=== PATIENT | male | born 1940 | race Caucasian/White ===

== ENCOUNTER → 2016-07-14 | Outpatient (CLI) | payer MEDICARE, OTHER | LOC: LAB.O 10:17 | PROVIDERS: ATTEND Nurse Practitioner Family | DX: I10 Essential (primary) hypertension (principal); R60.0 Localized edema; M79.641 Pain in right hand; M79.642 Pain in left hand ==

== ENCOUNTER → 2016-08-06 | Outpatient (CLI) | payer MEDICARE, OTHER ==
--- NOTE | 2016-08-06 14:55 | CT ---
EXAM DESCRIPTION: CT CHEST WITH IV CONTRAST CLINICAL HISTORY: EDEMA COMPARISON: None available TECHNIQUE: Chest CT was performed with IV contrast per PE protocol period no 3D reconstructed images were obtained. FINDINGS: Study is only slightly limited by respiratory motion artifact, but no pulmonary embolus is identified. The thyroid and thoracic inlet are unremarkable. There is no mediastinal or hilar adenopathy. No pleural or pericardial effusion. No thoracic aortic aneurysm or dissection. The central airways are clear. There is no airspace consolidation or lung mass. There is a 3 mm noncalcified right middle lobe nodule (series 2, image 34) period there is a 4 mm noncalcified nodule in the left upper lobe (series 2, image 21). There are several round low-density liver lesions measuring up to 2 cm diameter. The largest of these represent cysts, the smaller lesions are too small to characterize but also likely represent cysts period. Visualized portions of the upper abdomen are otherwise unremarkable. There is no suspicious bone lesion. IMPRESSION: Slightly limited exam due to motion artifact, but no apparent pulmonary embolus or other acute intrathoracic abnormality. Two small noncalcified nodules, 1 in each lung, the largest measuring 4 mm diameter period As per Fleischner Society guidelines for follow-up and management of pulmonary nodules: For patient at low risk (minimal or absent history of smoking and of other known risk factors), recommend follow-up chest CT at 12 months; if unchanged, no further follow-up. For patient at high risk (history of smoking or of other known risk factors), recommend initial follow-up chest CT at 6-12 months, then at 18-24 months if no interval change. Electronically signed by: Christian Riggins DO 08/06/2016 14:53
--- NOTE | 2016-08-06 15:22 | US ---
EXAM DESCRIPTION: US UPPER EXTREMITY VEINS LIMITED/UNILATERAL/FOLLOW UP CLINICAL HISTORY: EDEMA COMPARISON: None. TECHNIQUE: 2D grayscale and color venous duplex Doppler evaluation of the left upper extremity is performed. FINDINGS: There is normal vascular flow in the left subclavian and internal jugular vein. There is normal flow and compressibility in the axillary, basilic, brachial, cephalic, radial, and ulnar veins. No evidence of venous thrombosis is seen. IMPRESSION: No ultrasound evidence of venous thrombosis of the left upper extremity. Electronically signed by: Gonzalo Polo MD 08/06/2016 15:20
--- NOTE | 2016-08-06 15:23 | US ---
EXAM DESCRIPTION: US UPPER EXTREMITY VEINS LIMITED/UNILATERAL/FOLLOW UP CLINICAL HISTORY: EDEMA COMPARISON: None. TECHNIQUE: 2D grayscale and color venous duplex Doppler evaluation of the right upper extremity is performed. FINDINGS: Normal vascular flow seen in the right subclavian and internal jugular veins. There is normal compressibility and color flow in the right axillary, basilic, brachial, cephalic, radial, and ulnar veins. No venous thrombosis is identified. IMPRESSION: No ultrasound evidence of venous thrombosis of the right upper extremity. Electronically signed by: Gonzalo Polo MD 08/06/2016 15:21
== END | disposition home or self-care (01) ==
LOC: US 11:42
PROVIDERS: ATTEND Nurse Practitioner Family
DX: R60.0 Localized edema (principal); C85.90 Non-Hodgkin lymphoma, unspecified, unspecified site

== ENCOUNTER → 2018-04-29 | Outpatient (CLI) | payer MEDICARE, OTHER ==
--- NOTE | 2018-04-29 10:03 | RAD ---
EXAM DESCRIPTION: Pelvis CLINICAL HISTORY: PAIN IN LEFT HIP COMPARISON: None. TECHNIQUE: AP pelvis FINDINGS: The pelvis and proximal femurs are normal in appearance. Small phlebolith type calcifications are observed in the floor the pelvis. No mass is seen. IMPRESSION: Normal pelvis and proximal femurs. Electronically signed by: Reyes Kim MD 04/29/2018 10:01 AM CDT
--- NOTE | 2018-04-29 10:04 | RAD ---
EXAM DESCRIPTION: Knee,Left Complete CLINICAL HISTORY: LEFT KNEE PAIN COMPARISON: None. TECHNIQUE: 4 views left FINDINGS: A left total knee arthroplasty is observed. No evidence of loosening or infection is detected. A small joint effusion is evident. No fracture is detected. IMPRESSION: Left total knee arthroplasty. A small joint effusion is evident. Electronically signed by: Reyes Kim MD 04/29/2018 10:03 AM CDT
== END ==
LOC: RAD 08:00
PROVIDERS: ATTEND Orthopaedic Surgery
DX: M25.562 Pain in left knee (principal); M25.552 Pain in left hip; M25.462 Effusion, left knee; Z96.652 Presence of left artificial knee joint

== ENCOUNTER → 2019-01-17 | Outpatient (CLI) | payer MEDICARE, OTHER ==
--- NOTE | 2019-01-17 12:02 | RAD ---
EXAM DESCRIPTION: Chest,2 Views CLINICAL HISTORY: FEVER COMPARISON: Previous study December 01, 2015 TECHNIQUE: PA/lateral FINDINGS: There is no acute appearing cardiac or pulmonary abnormality. Heart size is normal with normal pulmonary vascularity. No pleural effusion or pneumothorax. Lungs are clear with no consolidating infiltrate. Lateral view shows intact sternum and T-spine. IMPRESSION: No acute process is identified in the chest. Electronically signed by: Maxi Camacho MD 01/17/2019 12:00 PM CDT
== END ==
LOC: LAB.O 10:52
PROVIDERS: ATTEND Nurse Practitioner Family
DX: R50.9 Fever, unspecified (principal)

== ENCOUNTER → 2019-02-01 | Outpatient (CLI) | payer MEDICARE, OTHER | LOC: LAB.O 12:14 | PROVIDERS: ATTEND Nurse Practitioner Family | DX: R60.0 Localized edema (principal) ==

== ENCOUNTER → 2019-02-09 | Outpatient (CLI) | payer MEDICARE, OTHER ==
--- NOTE | 2019-02-09 11:40 | RAD ---
EXAM DESCRIPTION: Chest,2 Views CLINICAL HISTORY: CARDIAC ARRHYTHMIA COMPARISON: Previous study January 17, 2019 TECHNIQUE: PA/lateral FINDINGS: There is no acute appearing cardiac or pulmonary abnormality. Heart size is normal with normal pulmonary vascularity. No pleural effusion or pneumothorax. Lungs are clear with no consolidating infiltrate. Lateral view shows intact sternum and spurring in the mid to lower T-spine. IMPRESSION: No acute process is identified in the chest. Electronically signed by: Maxi Camacho MD 02/09/2019 11:39 AM CDT
== END ==
LOC: LAB.O 09:59
PROVIDERS: ATTEND Nurse Practitioner Family
DX: I49.9 Cardiac arrhythmia, unspecified (principal)

== ENCOUNTER → 2019-06-06 | Outpatient (CLI) | payer MEDICARE, OTHER ==
--- NOTE | 2019-06-06 11:00 | RAD ---
EXAM DESCRIPTION: Pelvis CLINICAL HISTORY: 78 years Male, HIP PAIN COMPARISON: April 29, 2018 FINDINGS: Single radiograph of the pelvis demonstrates the bony pelvic ring intact. No fracture or deformity is noted and no interval change from April 29, 2018 noted. No foreign body or other abnormalities seen. IMPRESSION: Negative pelvis one view. Electronically signed by: Seven Mondragon MD 06/06/2019 10:59 AM [facility]
--- NOTE | 2019-06-06 11:04 | RAD ---
EXAM DESCRIPTION: Hip,Left 2 Views CLINICAL HISTORY: HIP PAIN COMPARISON: None Available. TECHNIQUE: AP/frog leg lateral FINDINGS: Two radiographs of the left hip demonstrate mild degenerative osteophyte formation at the lateral acetabular margin. The joint space is mildly narrowed intact. No fracture or dislocation seen. IMPRESSION: Minimal degenerative changes with no acute injury. Electronically signed by: Seven Mondragon MD 06/06/2019 11:02 AM [facility]
== END ==
LOC: RAD 09:24
PROVIDERS: ATTEND Orthopaedic Surgery
DX: M16.12 Unilateral primary osteoarthritis, left hip (principal)

== ENCOUNTER → 2020-01-23 | Outpatient (CLI) | payer MEDICARE, OTHER ==
--- NOTE | 2020-01-23 16:24 | RAD ---
EXAM DESCRIPTION: Lumbar Spine 5 Views: CR/DR/XR CLINICAL HISTORY: 79 years Male LUMBAR RADICULOPATHY COMPARISON: Pelvis radiograph May 2019. TECHNIQUE: 5 AP Lateral Spot lateral L5-S1 Bilateral lateral obliques FINDINGS: Lumbar type vertebra: 5. Transitional vertebrae: None. Disc spaces: Endplate ridging from L2-L3 to L5-S1. Minimal disc space loss L5-S1. Compression deformities: None. Bone Density: Normal. Alignment: 2 mm grade 1 anterolisthesis L5-S1. Oblique: Bilateral L5 pars spondylolysis. Facet joints: Unilateral or bilateral arthrosis L3-L4 down to L5-S1. Abdomen: Diffuse fecal matter proximally midcolon. Hypertrophy of the superior acetabula margins bilaterally. IMPRESSION: Multiple levels of endplate ridging. Unilateral or bilateral arthrosis L3-4 down to L5-S1. No compression type vertebral body fractures. Disc desiccation with disc space loss L5-S1. Bilateral L5 pars spondylolysis. Grade 1 anterolisthesis L5-S1. Electronically signed by: Navarro Cash MD 01/23/2020 4:22 PM CDT
== END ==
LOC: RAD 09:39
PROVIDERS: ATTEND Orthopaedic Surgery
DX: M47.896 Other spondylosis, lumbar region (principal); M51.37 Other intervertebral disc degeneration, lumbosacral region; M47.897 Other spondylosis, lumbosacral region; M43.17 Spondylolisthesis, lumbosacral region; M54.16 Radiculopathy, lumbar region